=== PATIENT | female | born 1980 | race Caucasian/White ===

== ENCOUNTER 2016-12-17 10:35 | Inpatient (IN) | payer OTHER ==
[~2016-12-17] VITALS: Ht 160 cm; Wt 76.2 kg
[2016-12-17] MEDS ORDERED: METOCLOPRAMIDE HCL 5 MG/ML 2 ML VIAL IVP ONE (10:45)
[2016-12-17] MEDS ORDERED: CITRIC ACID/SODIUM CITRATE 30 ML SOLUTION UDCUP PO ONE (10:45)
[2016-12-17] MEDS ORDERED: PREN-159 PO (10:54)
[2016-12-17] MEDS ORDERED: RINGERS SOLUTION,LACTATED 1,000 ML IV ONE (11:00)
[2016-12-17 11:27] LABS: BASOPHILS % (AUTO) 0.4 % (0.0-2.0); EOSINOPHILS % (AUTO) 1.1 % (1.0-6.0); HEMATOCRIT 34.1 % (36-46); HEMOGLOBIN 11.4 g/dL (12.0-16.0); LYMPHOCYTES # (AUTO) 1.4 K/uL (1.0-4.8); LYMPHOCYTES % (AUTO) 21.9 % (22.0-44.0); MEAN CORPUSCULAR HEMOGLOBIN 31.1 pg (26.0-34.0); MEAN CORPUSCULAR HGB CONC 33.4 G/dL (31.0-37.0); MEAN CORPUSCULAR VOLUME 93 fL (80-100); MONOCYTES # (AUTO) 0.6 K/uL (0.1-1.0); MONOCYTES % (AUTO) 9.7 % (2.0-9.0); NEUTROPHILS # (AUTO) 4.3 K/uL (1.8-7.7); NEUTROPHILS % (AUTO) 66.9 % (40.0-70.0); PLATELET COUNT (AUTO) 202 K/uL (150-450); RED BLOOD CELL COUNT(AUTO) 3.66 MIL/uL (4.00-5.20); RED CELL DISTRIBUTION WIDTH 14.1 % (11.5-14.5); WHITE BLOOD COUNT (AUTO) 6.4 K/uL (4.5-11.0)
[2016-12-17] MEDS ORDERED: OXYGEN THERAPY IH SCH ×3 (11:30→20:00)
[2016-12-17] MEDS ORDERED: MEPERIDINE-PF 25 MG/ML SYRINGE IVP PRN (11:30)
[2016-12-17] MEDS ORDERED: MORPHINE SULFATE/PF 1 MG/ML 10 ML AMP ONE (11:36)
[2016-12-17 11:44] VITALS: BP 119/70
[2016-12-17] MEDS ORDERED: INFLUENZA VIRUS VACCINE QVS 2016-17 (3YR+)/PF 60 MCG/0.5 ML SYRINGE IM ONE (12:15)
[2016-12-17] MEDS ORDERED: PNEUMOCOCCAL VACCINE POLYVALENT 0.5 ML VIAL [PPSV23] IM ONE (12:15)
[2016-12-17] MEDS ORDERED: LANOLIN 7 GM OINTMENT TP PRN (14:15)
[2016-12-17] MEDS ORDERED: ACETAMINOPHEN/CODEINE 300-30 MG TABLET PO PRN (14:15)
[2016-12-17] MEDS ORDERED: NALBUPHINE HCL 10 MG/ML VIAL IVP SCH (14:30)
[2016-12-17] MEDS ORDERED: NALBUPHINE HCL 10 MG/ML VIAL ONE (14:34)
[2016-12-17] MEDS ORDERED: DiphenhydrAMINE HCL 50 MG/ML VIAL IVP PRN (15:15)
[2016-12-17] MEDS ORDERED: NALBUPHINE HCL 10 MG/ML VIAL IVP PRN ×2 (15:15)
[2016-12-17] MEDS ORDERED: ONDANSETRON HCL 4 MG/2 ML VIAL IVP PRN (15:15)
[2016-12-17] MEDS ORDERED: NALOXONE HCL 0.4 MG/ML VIAL IVP PRN (15:15)
[2016-12-17] MEDS: DEXTROSE 5%-0.45% SODIUM CHL 1,000 ML IV SCH ×3 (15:50→23:50)
[2016-12-17] MEDS: FentaNYL CITRATE-PF 100 MCG/2 ML VIAL IVP PRN (18:00)
[2016-12-17] MEDS: NALBUPHINE HCL 10 MG/ML VIAL IVP SCH (20:50)
[2016-12-17] MEDS ORDERED: EPHEDrine SULFATE 50 MG/ML VIAL IM ONE (22:28)
[2016-12-17] MEDS ORDERED: OXYTOCIN 10 UNITS/ML VIAL IM ONE (22:28)
[2016-12-17] MEDS ORDERED: GLYCOPYRROLATE 0.2 MG/ML VIAL IM ONE (22:28)
[2016-12-17] MEDS ORDERED: ONDANSETRON HCL 4 MG/2 ML VIAL IVP ONE (22:28)
[2016-12-18] MEDS ORDERED: FentaNYL CITRATE-PF 100 MCG/2 ML VIAL IVP ONE (00:08)
[2016-12-18] MEDS: NALBUPHINE HCL 10 MG/ML VIAL IVP SCH ×3 (02:30→14:30)
[2016-12-18] MEDS: FentaNYL CITRATE-PF 100 MCG/2 ML VIAL IVP PRN (04:31)
[2016-12-18] MEDS: DEXTROSE 5%-0.45% SODIUM CHL 1,000 ML IV SCH (04:32)
[2016-12-18] MEDS: IBUPROFEN 800 MG TABLET PO SCH ×3 (06:30→21:25)
[2016-12-18] MEDS: MAGNESIUM HYDROXIDE SUSPENSION 30 ML UDCUP PO SCH ×2 (08:58→21:26)
[2016-12-19] MEDS: IBUPROFEN 800 MG TABLET PO SCH ×4 (03:00→20:53)
[2016-12-19] MEDS: MAGNESIUM HYDROXIDE SUSPENSION 30 ML UDCUP PO SCH ×2 (08:07→20:54)
[2016-12-19] MEDS: ACETAMINOPHEN/CODEINE 300-30 MG TABLET PO PRN (20:53)
[2016-12-20] MEDS: IBUPROFEN 800 MG TABLET PO SCH ×2 (02:48→13:11)
[2016-12-20 06:30] LABS: BASOPHILS # (AUTO) 0.01 K/uL (0.00-0.20); BASOPHILS % (AUTO) 0.1 % (0.0-2.0); EOSINOPHILS # (AUTO) 0.32 K/uL (0.00-0.70); EOSINOPHILS % (AUTO) 3.59 % (1.0-6.0); HEMOGLOBIN 8.7 g/dL (12.0-16.0); LYMPHOCYTES # (AUTO) 1.6 K/uL (1.0-4.8); LYMPHOCYTES % (AUTO) 17.2 % (22.0-44.0); MEAN CORPUSCULAR HEMOGLOBIN 31.5 pg (26.0-34.0); MEAN CORPUSCULAR HGB CONC 33.4 G/dL (31.0-37.0); MEAN CORPUSCULAR VOLUME 94 fL (80-100); MONOCYTES # (AUTO) 0.6 K/uL (0.1-1.0); MONOCYTES % (AUTO) 6.6 % (2.0-9.0); NEUTROPHILS # (AUTO) 6.6 K/uL (1.8-7.7); NEUTROPHILS % (AUTO) 72.6 % (40.0-70.0); RED BLOOD CELL COUNT(AUTO) 2.76 MIL/uL (4.00-5.20); RED CELL DISTRIBUTION WIDTH 14.7 % (11.5-14.5)
[2016-12-20] MEDS: MAGNESIUM HYDROXIDE SUSPENSION 30 ML UDCUP PO SCH (09:00)
[2016-12-20] MEDS: ACETAMINOPHEN/CODEINE 300-30 MG TABLET PO PRN (13:11)
[2016-12-20] MEDS ORDERED: ACET1TAB12 PO (13:31)
[2016-12-20] MEDS ORDERED: IBUP-2070 PO (13:33)
[2016-12-20] MEDS ORDERED: FERR-89 PO (13:35)
[2016-12-20] MEDS ORDERED: DSS100 PO (13:36)
== END 2016-12-20 14:05 | disposition home or self-care (01) | DRG 766 ==
LOC: OBSVTOIN 10:35 → 4S 10:35
PROVIDERS: ADMIT Obstetrics & Gynecology; ATTEND Obstetrics & Gynecology
PROC: 10D00Z1 Extraction of Products of Conception, Low, Open Approach (ICD-10-PCS; principal; 2016-12-17)
PROC: 3E0234Z Introduction of Serum, Toxoid and Vaccine into Muscle, Percutaneous Approach (ICD-10-PCS; 2016-12-17)
DX: O34.211 Maternal care for low transverse scar from previous cesarean delivery (principal); N85.8 Other specified noninflammatory disorders of uterus; O09.523 Supervision of elderly multigravida, third trimester; G51.0 Bell's palsy; O26.893 Other specified pregnancy related conditions, third trimester; Z3A.39 39 weeks gestation of pregnancy; Z37.0 Single live birth; Z23 Encounter for immunization
CPT/HCPCS: 86850; 86900; 86901; 87081; 90471; J0690; J2175; J2300; J2405; J2590; J2765; J3010; J3490; J7120